=== PATIENT | male | born 1955 | race Caucasian/White ===

== ENCOUNTER → 2021-06-14 15:01 | Outpatient (CLI) | payer OTHER, SELFPAY ==
--- NOTE | 2021-06-14 15:04 | DI.RAD.S_ITS ---
PROCEDURE: XR LUMBAR SPINE MIN 4V INDICATIONS: BACK PAIN TECHNIQUE: Four views of the lumbar spine including bilateral obliques. COMPARISON: None. FINDINGS: Bones: Five nonrib-bearing vertebrae are present. Normal transverse alignment. Grade 1 anterolisthesis L4 on five and trace retrolisthesis L1 on two, L2 on three, and L5 on S1. Moderate disc height loss at all levels, most severe at L5-S1. Moderate facet arthropathy L5-S1. No vertebral body compression fractures. No suspicious bony lesions. Soft tissues: Overlying bowel gas pattern is normal. No suspicious soft tissue calcifications. Mild abdominal aortic atherosclerotic calcification. Oblique images: No pars defects. IMPRESSION: 1. Multilevel spondylosis. 2. Grade 1 L4 on five anterolisthesis. Dictated by: Maria Fernanda Blackwell M.D. on 06/14/2021 at 16:46 Approved by: Maria Fernanda Blackwell M.D. on 06/14/2021 at 16:48
== END ==
PROVIDERS: PCP Family Medicine; Referring Provider Physical Medicine & Rehabilitation; Visit Provider Physical Medicine & Rehabilitation
DX: M54.9 Dorsalgia, unspecified (principal); M47.816 Spondylosis without myelopathy or radiculopathy, lumbar region
CPT/HCPCS: 72110

== ENCOUNTER → 2021-11-26 10:18 | Outpatient (CLI) | payer OTHER, SELFPAY ==
--- NOTE | 2021-11-26 | DI.CT.S_ITS ---
PROCEDURE: CT LUMBAR SPINE WO CON INDICATIONS: Spinal stenosis, lumbar region TECHNIQUE: Noncontrast 3 mm thick sections acquired from the T12 level to the sacrum. Sagittal and coronal reformats were constructed. For radiation dose reduction, the following was used: automated exposure control. COMPARISON: [facility] MR, MR LUMBAR SPINE WITHOUT CONTRAST, 11/13/2021, 10:20. FINDINGS: Image quality: Excellent. Bones: There grade 1 retrolisthesis of L5 on S1 measuring 4 mm, grade 1 anterolisthesis of L4 on L5, also measuring 4 mm. There are no fractures or dislocations. No suspicious osseous lesions. Anterior osteophytes are present most prominently at L1, L2, L3 and L5. Severe disc space narrowing with vacuum disc is present at L5-S1, moderate to severe L4-5 with overall [id number] disc space narrowing throughout the remainder of the lumbar spine. Mild disc bulges are present at L1-L2, L2-3, L3-4, L4-5 and L5-S1. Superimposed protrusions are noted at L2-3, L3-4 and L4-5, better visualized on prior MRI exam. There is effacement of the anterior thecal sac at L2-3 with [id number] spinal stenosis, moderate spinal stenosis is also present at L3-4, moderate to severe L4-5, minimal to mild L5-S1. There is an overall appearance of congenitally short pedicles. Mild bilateral foraminal narrowing is present at L2-3, moderate L3-4, L4-5 and L5-S1. There is mild flattening of the exiting nerve roots bilaterally at L4. Multilevel facet and ligamentum flavum hypertrophy are present. Soft tissues: No retroperitoneal masses or hematomas. Visualized aorta is normal in caliber. IMPRESSION: Multilevel disc bulges and protrusions. Multilevel spinal stenosis secondary to disc bulges with contributing affective facet/ligamentum flavum arthropathy as well as congenitally shortened pedicles. Multilevel foraminal narrowing most notable at L3-4, L4-5 and L5-S1. Dictated by: Summer Roper M.D. on 11/26/2021 at 11:41 Approved by: Summer Roper M.D. on 11/26/2021 at 11:52
[2021-11-26 12:11] LABS: Add Manual Diff / Slide Review NO; Basophils Absolute Auto 0 /uL (0-100); Basophils Percent Auto 0.4 % (0-2); Eosinophils Absolute Auto 500 /uL (0-450); Eosinophils Percent Auto 5.8 % (2-4); Hematocrit 49.2 % (41-53); Hemoglobin 16.8 g/dL (13.5-17.5); Lymphocytes Absolute Auto 3000 /uL (1100-4500); Lymphocytes Percent Auto 32.9 % (25-40); Mean Corpuscular HGB Conc 34.2 % (30-36); Mean Corpuscular Hemoglobin 28.6 PG (26-34); Mean Corpuscular Volume 83.7 fL (80-100); Monocytes Absolute Auto 1000 /uL (0-900); Monocytes Percent Auto 11.2 % (3-14); Neutrophils Absolute Auto 4600 /uL (1500-7000); Neutrophils Percent Auto 49.7 % (50-75); Platelet Count 270 X10^3/uL (150-400); Red Blood Cell Count 5.88 X10^6/uL (4.5-5.9); Red Cell Distribution Width 12.9 % (11.6-14.8); White Blood Cell Count 9.2 X10^3/uL (4.5-11.0)
[2021-11-26 13:32] LABS: BUN Creatinine Ratio 16.1 (6-22); Blood Urea Nitrogen 20 mg/dL (9-20); Calcium 9.3 mg/dL (8.4-10.2); Carbon Dioxide 30 mmol/L (22-32); Chloride 104 mmol/L (98-107); Estimated Glomerular Filt Rate 58.5 mL/min (>60); Glucose 92 mg/dL (80-110); HEMOLYSIS < 15 (0-50); Potassium 3.8 mmol/L (3.4-5.1); Sodium 144 mmol/L (137-145)
[2021-11-26 13:41] LABS: Appearance Urine UA CLEAR; Bilirubin Urine UA NEGATIVE (NEGATIVE); Color Urine UA YELLOW; Glucose Urine UA NEGATIVE (Negative); Ketones Urine UA NEGATIVE (NEGATIVE); Leukocyte Esterase Urine UA NEGATIVE (NEGATIVE); Nitrite Urine UA NEGATIVE (Negative); Occult Blood Urine UA NEGATIVE (Negative); Protein Urine UA TRACE (Negative); Specific Gravity Urine UA >=1.030 (1.000-1.035); Urobilinogen Urine UA 0.2 E.U./dL (0.2)
[2021-11-26 14:06] LABS: Bacteria Urine None Seen; Culture Indicated Urine Cult Not Indicated; Hyaline Casts Urine 0-1/LPF; RBC Urine 0-1/HPF (0-5/HPF); Squamous Epithelial Cell Urine 0-1 /HPF (0-5/HPF); WBC Urine 0-1/HPF (0-5/HPF)
== END ==
PROVIDERS: PCP Family Medicine; Referring Provider Orthopaedic Surgery Orthopaedic Surgery of the Spine; Visit Provider Orthopaedic Surgery Orthopaedic Surgery of the Spine
DX: Z01.818 Encounter for other preprocedural examination (principal); Z01.812 Encounter for preprocedural laboratory examination; N39.0 Urinary tract infection, site not specified; M51.26 Other intervertebral disc displacement, lumbar region; M48.062 Spinal stenosis, lumbar region with neurogenic claudication; M48.07 Spinal stenosis, lumbosacral region
CPT/HCPCS: 36415; 72131; 80048; 81001; 85025; 93005